=== PATIENT | female | born 1935 | race Caucasian/White ===

== ENCOUNTER → 2016-12-08 | Outpatient (CLI) | payer MEDICARE, BC ==
--- NOTE | 2016-12-09 09:30 | MM ---
Reason for exam: screening (asymptomatic). Last mammogram was performed 1 year and 5 months ago. History: Patient is postmenopausal. Benign excisional biopsy of the left breast, 1989. Took estrogen for 10 years beginning at age 48. Physical Findings: A clinical breast exam by your physician is recommended on an annual basis and results should be correlated with mammographic findings. MG 3D Screening Mammo W/Cad Bilateral CC and MLO view(s) were taken. Prior study comparison: June 26, 2015, bilateral MG screening mammo w CAD. June 07, 2014, bilateral MG screening mammo w CAD. The breast tissue is almost entirely fat. There is chronic nodularity in the left breast. No significant changes when compared with prior studies. ASSESSMENT: Benign, BI-RAD 2 RECOMMENDATION: Routine screening mammogram of both breasts in 1 year.
== END | disposition home or self-care (01) ==
LOC: RADMAMWWP 07:08
PROVIDERS: ATTEND Family Medicine
DX: Z12.31 Encounter for screening mammogram for malignant neoplasm of breast (principal)
CPT/HCPCS: 77063; G0202

== ENCOUNTER → 2018-01-24 | Outpatient (CLI) | payer MEDICARE, BC ==
--- NOTE | 2018-01-24 23:14 | BD ---
EXAMINATION TYPE: Axial Bone Density DATE OF EXAM: 01/24/2018 COMPARISON: NONE CLINICAL HISTORY: 82-year-old female postmenopausal screening without HRT Height: 5 FT 3 1/2 IN Weight: 208 FRAX RISK QUESTIONS: Secondary Osteoporosis: 3. Menopause before 45: YES RISK FACTORS HISTORY OF: Active: MODERATELY Postmenopausal woman: AGE 48 Take estrogen and/or progesterone medications: TOOK PREMARIN How lon YEARS NO LONGER TAKES MEDICATIONS: Additional Medications: METOPROLOL, PRAVASTATIN, OSTEO BIFLEX, CENTRUM SILVER, COQ10, ASPIRIN Additional History: EXAM MEASUREMENTS: Bone mineral densitometry was performed using the [employer] System. Bone mineral density as measured about the Lumbar spine is: ----- L1-L4(G/cm2): 1.297 T Score Values are as follows: ----- L2: 0.5 ----- L3: 1.3 ----- L4: 1.7 ----- L1-L4: 1.0 Bone mineral density has: INCREASED 1.1 % since study of: 2004 Bone mineral density about the R hip (g/cm2): 1.028 Bone mineral density about the L hip (g/cm2): 0.814 T Score values are as follows: -----R Neck: -0.1 -----L Neck: -1.6 -----R Total: 0.5 -----L Total: 0.2 Bone mineral density has: DECREASED -4.1 % since study of: 2004 IMPRESSION: Osteopenia (T Score between -2.5 and -1). There is slightly increased risk of fracture and the patient may be considered for treatment. Re-Screen 2-5 years. NOTE: T-SCORE=SD OF THE YOUNG ADULT MEAN.
--- NOTE | 2018-01-26 08:44 | MM ---
Reason for exam: screening (asymptomatic). Last mammogram was performed 1 year and 2 months ago. History: Patient is postmenopausal. Benign excisional biopsy of the left breast, 1989. Took estrogen for 10 years beginning at age 48. Physical Findings: A clinical breast exam by your physician is recommended on an annual basis and results should be correlated with mammographic findings. MG 3D Screening Mammo W/Cad Bilateral CC and MLO view(s) were taken. Prior study comparison: December 08, 2016, bilateral MG 3d screening mammo w/cad. June 26, 2015, bilateral MG screening mammo w CAD. There are scattered fibroglandular densities. There is chronic nodularity in the left breast. No significant changes when compared with prior studies. ASSESSMENT: Negative, BI-RAD 1 RECOMMENDATION: Routine screening mammogram of both breasts in 1 year.
== END | disposition home or self-care (01) ==
LOC: RADMAMWWP 07:45
PROVIDERS: ATTEND Family Medicine
DX: Z12.31 Encounter for screening mammogram for malignant neoplasm of breast (principal); M85.80 Other specified disorders of bone density and structure, unspecified site; Z78.0 Asymptomatic menopausal state
CPT/HCPCS: 77063; 77067; 77080

== ENCOUNTER → 2019-02-05 | Outpatient (CLI) | payer MEDICARE, BC ==
--- NOTE | 2019-02-07 09:08 | MM ---
Reason for exam: screening (asymptomatic). Last mammogram was performed 1 year ago. History: Patient is postmenopausal. Benign excisional biopsy of the left breast, 1989. Took estrogen for 10 years beginning at age 48. Physical Findings: A clinical breast exam by your physician is recommended on an annual basis and results should be correlated with mammographic findings. MG 3D Screening Mammo W/Cad Bilateral CC and MLO view(s) were taken. Prior study comparison: January 24, 2018, bilateral MG 3d screening mammo w/cad. December 08, 2016, bilateral MG 3d screening mammo w/cad. There are scattered fibroglandular densities. There is chronic nodularity in the left breast. Mole medially on the right. No significant changes when compared with prior studies. ASSESSMENT: Negative, BI-RAD 1 RECOMMENDATION: Routine screening mammogram of both breasts in 1 year.
== END | disposition home or self-care (01) ==
LOC: RADMAMWWP 07:56
PROVIDERS: ATTEND Family Medicine
DX: Z12.31 Encounter for screening mammogram for malignant neoplasm of breast (principal)
CPT/HCPCS: 77063; 77067

== ENCOUNTER → 2020-04-28 | Outpatient (CLI) | payer MEDICARE, BC ==
--- NOTE | 2020-04-29 13:28 | MM ---
Reason for exam: screening (asymptomatic). Last mammogram was performed 1 year and 3 months ago. History: Patient is postmenopausal. Benign excisional biopsy of the left breast, 1989. Took estrogen for 10 years beginning at age 48. Physical Findings: A clinical breast exam by your physician is recommended on an annual basis and results should be correlated with mammographic findings. MG 3D Screening Mammo W/Cad Bilateral CC and MLO view(s) were taken. Prior study comparison: February 05, 2019, bilateral MG 3d screening mammo w/cad. January 24, 2018, bilateral MG 3d screening mammo w/cad. There are scattered fibroglandular densities. There is chronic nodularity in the left breast. No significant changes when compared with prior studies. ASSESSMENT: Negative, BI-RAD 1 RECOMMENDATION: Routine screening mammogram of both breasts in 1 year.
== END | disposition home or self-care (01) ==
LOC: RADMAMWWP 13:27
PROVIDERS: ATTEND Family Medicine
DX: Z12.31 Encounter for screening mammogram for malignant neoplasm of breast (principal)
CPT/HCPCS: 77063; 77067

== ENCOUNTER 2021-05-18 19:58 | Observation (INO) | payer MEDICARE, BC ==
[2021-05-18 23:04] VITALS: TEMP 97.6
[2021-05-19 03:24] LABS: Appearance,Urine Clear (Clear); Bilirubin,Urine Negative (Negative); Blood,Urine Negative (Negative); Color,Urine Yellow; Glucose,Urine (UA) Negative (Negative); Ketones,Urine Negative (Negative); Leukocyte Esterase,Urine Negative (Negative); Nitrite,Urine Negative (Negative); PH, Urine 5.5 (5.0-8.0); Protein,Urine Negative (Negative); Specific Gravity,Urine 1.012 (1.001-1.035); Urobilinogen,Urine <2.0 mg/dL (<2.0)
[2021-05-19 03:39] LABS: Albumin 3.6 g/dL (3.5-5.0); Calcium 9.3 mg/dL (8.4-10.2); Potassium 4.1 mmol/L (3.5-5.1); Total Bilirubin 0.3 mg/dL (0.2-1.3); Total Protein 6.5 g/dL (6.3-8.2)
[2021-05-19 03:41] LABS: INR 0.9 (<1.2); Partial Thromboplastin Time 22.9 sec (22.0-30.0)
[2021-05-19 03:48] LABS: Basophils # (A) 0.1 k/uL (0-0.2); Basophils % (A) 1 %; Eosinophils # (A) 0.2 k/uL (0-0.7); Eosinophils % (A) 1 %; HCT 41.1 % (34.0-46.0); HGB 13.9 gm/dL (11.4-16.0); Lymphocytes # (A) 6.4 k/uL (1.0-4.8); Lymphocytes % (A) 57 %; MCH 31.7 pg (25.0-35.0); MCHC 33.7 g/dL (31.0-37.0); MCV 93.8 fL (80.0-100.0); Mean Platelet Volume 8.1; Monocytes # (A) 0.5 k/uL (0-1.0); Monocytes % (A) 5 %; Neutrophils # (A) 3.7 k/uL (1.3-7.7); Neutrophils % (A) 33 %; Platelet Count 183 k/uL (150-450); RBC 4.38 m/uL (3.80-5.40); RDW 12.7 % (11.5-15.5); WBC 11.2 k/uL (3.8-10.6)
--- NOTE | 2021-05-19 04:08 | XR ---
EXAMINATION TYPE: XR chest 2V DATE OF EXAM: 05/19/2021 COMPARISON: NONE HISTORY: Altered mental status TECHNIQUE: 2 views FINDINGS: Heart is enlarged. There is no heart failure. Costophrenic angles are clear. Lungs are maximiliano r of infiltrate. Bony thorax is intact. IMPRESSION: No active cardiopulmonary disease. Cardiomegaly.
--- NOTE | 2021-05-19 04:10 | CT ---
EXAMINATION TYPE: CT brain wo con DATE OF EXAM: 05/19/2021 COMPARISON: None HISTORY: loss of balance CT DLP: 1487 mGycm Automated exposure control for dose reduction was used. There is cerebral cortical atrophy. There is no mass effect nor midline shift. There is no sign of in tracranial hemorrhage. Calvarium is intact. Skull base is intact. There is mucus retention cyst poste rior left maxillary sinus. IMPRESSION: Cerebral mild atrophy. No acute intracranial abnormality.
--- NOTE | 2021-05-19 04:30 | ED ---
General Adult HPI - General Chief complaint: Neuro Symptoms/Deficit Stated complaint: Loss of balance Time Seen by Provider: 05/19/21 02:26 Source: patient, family Mode of arrival: ambulatory - History of Present Illness Initial comments: 85-year-old female patient presents to the emergency department today for evaluation of inability to "walk straight" states symptoms started around 5pm this evening. States whenever she went to walk she would nearly fall. States denies any dizziness or room spinning. Denies any headache, blurred vision, or double vision. Denies any recent head injury. States her blood pressure has been higher than usual this evening. Denies any numbness, tingling, weakness to her extremities. Denies speech difficulty. Denies any chest pain or shortness of breath. Denies history of similar symptoms. She does take metoprolol for blood pressure. - Related Data Home Medications Medication Instructions Recorded Confirmed Aspirin 81 mg PO DAILY 12/06/13 12/07/13 Esomeprazole Magnesium [NexIUM] 40 mg PO DAILY PRN 12/06/13 12/07/13 Ezetimibe/Simvastatin [Vytorin 1 each PO HS 12/06/13 12/07/13 10-20 mg Tablet] Quinapril HCl 40 mg PO DAILY 12/06/13 12/07/13 Terbinafine [LamISIL] 250 mg PO DAILY 12/06/13 12/07/13 Previous Rx's Medication Instructions Recorded diphenhydrAMINE [Benadryl] 25 mg PO BID PRN #10 capsule 03/07/14 predniSONE 50 mg PO DAILY #3 tab 03/07/14 Allergies Allergy/AdvReac Type Severity Reaction Status Date / Time No Known Allergies Allergy Verified 05/18/21 22:58 Review of Systems ROS Statement: Those systems with pertinent positive or pertinent negative responses have been documented in the HPI. ROS Other: All systems not noted in ROS Statement are negative. Past Medical History Past Medical History: Hypertension History of Any Multi-Drug Resistant Organisms: None Reported Past Surgical History: Cholecystectomy, Hysterectomy, Orthopedic Surgery, Tonsillectomy Past Psychological History: No Psychological Hx Reported Smoking Status: Never smoker Past Alcohol Use History: None Reported Past Drug Use History: None Reported General Exam General appearance: alert, in no apparent distress, other (This is a well- developed, well-nourished adult female patient in no acute distress.) Eye exam: Present: normal appearance, PERRL, EOMI, nystagmus (Left horizontal gaze). Absent: scleral icterus, conjunctival injection, periorbital swelling ENT exam: Present: normal exam, normal oropharynx, mucous membranes moist Respiratory exam: Present: normal lung sounds bilaterally. Absent: respiratory distress, wheezes, rales, rhonchi, stridor Cardiovascular Exam: Present: normal rhythm, bradycardia, normal heart sounds. Absent: systolic murmur, diastolic murmur, rubs, gallop, clicks GI/Abdominal exam: Present: soft, normal bowel sounds. Absent: distended, tenderness, guarding, rebound, rigid Neurological exam: Present: alert, oriented X3, CN II-XII intact Expanded Speech: Present: fluid speech Cranial nerves: EOM's Intact: Normal, Nystagmus: Abnormal Left, Facial Sensation: Normal Cerebellar function: Finger to Nose: Normal, Romberg: Abnormal Right, Abnormal Left Upper motor neuron: Pronator Drift: Normal Motor strength exam: RUE: 5, LUE: 5, RLE: 5, LLE: 5 Psychiatric exam: Present: normal affect, normal mood Skin exam: Present: warm, dry, intact, normal color. Absent: rash Course Vital Signs 05/18/21 05/19/21 22:59 02:27 Temperature 97.6 F Pulse Rate 59 L 62 Respiratory 20 16 Rate Blood Pressure 192/80 174/80 O2 Sat by Pulse 98 96 Oximetry EKG Findings - EKG Comments: EKG Findings:: EKG obtained at 03 15 shows sinus bradycardia with a ventricular rate of 53, MA interval 142, QR restorationism 80, QT 486, QTc 456. No evidence of ST elevation or depression. Medical Decision Making - Medical Decision Making 85-year-old female patient presented to the emergency department today for acute onset of gait disturbance around 5 PM in the afternoon. We'll examination did reveal gait ataxia. She was otherwise neurologically intact with no focal deficits. Alert and oriented. Labs reviewed and are unremarkable. CT brain without contrast was negative. CT angiography of the head and neck was negative. Chest x-ray negative. She'll be admitted to the hospital for further evaluation by neurology. Did discuss with my attending Dr. Irwin. - Lab Data Result diagrams: 05/19/21 03:18 05/19/21 03:18 Lab Results 05/19/21 05/19/21 05/19/21 Range/Units 02:19 03:18 03:18 WBC 11.2 H (3.8-10.6) k/uL RBC 4.38 (3.80-5.40) m/uL Hgb 13.9 (11.4-16.0) gm/dL Hct 41.1 (34.0-46.0) % MCV 93.8 (80.0-100.0) fL MCH 31.7 (25.0-35.0) pg MCHC 33.7 (31.0-37.0) g/dL RDW 12.7 (11.5-15.5) % Plt Count 183 (150-450) k/uL MPV 8.1 PT 10.0 (9.0-12.0) sec INR 0.9 (<1.2) APTT 22.9 (22.0-30.0) sec Sodium (137-145) mmol/L Potassium (3.5-5.1) mmol/L Chloride (98-107) mmol/L Carbon Dioxide (22-30) mmol/L Anion Gap mmol/L BUN (7-17) mg/dL Creatinine (0.52-1.04) mg/dL Est GFR (CKD-EPI)AfAm (>60 ml/min/1.73 sqM) Est GFR (CKD-EPI)NonAf (>60 ml/min/1.73 sqM) Glucose (74-99) mg/dL Calcium (8.4-10.2) mg/dL Total Bilirubin (0.2-1.3) mg/dL AST (14-36) U/L ALT (4-34) U/L Alkaline Phosphatase (38-126) U/L Troponin I (0.000-0.034) ng/mL Total Protein (6.3-8.2) g/dL Albumin (3.5-5.0) g/dL Urine Color Yellow Urine Appearance Clear (Clear) Urine pH 5.5 (5.0-8.0) Ur Specific Clutier 1.012 (1.001-1.035) Urine Protein Negative (Negative) Urine Glucose (UA) Negative (Negative) Urine Ketones Negative (Negative) Urine Blood Negative (Negative) Urine Nitrite Negative (Negative) Urine Bilirubin Negative (Negative) Urine Urobilinogen <2.0 (<2.0) mg/dL Ur Leukocyte Esterase Negative (Negative) 05/19/21 05/19/21 Range/Units 03:18 03:18 WBC (3.8-10.6) k/uL RBC (3.80-5.40) m/uL Hgb (11.4-16.0) gm/dL Hct (34.0-46.0) % MCV (80.0-100.0) fL MCH (25.0-35.0) pg MCHC (31.0-37.0) g/dL RDW (11.5-15.5) % Plt Count (150-450) k/uL MPV PT (9.0-12.0) sec INR (<1.2) APTT (22.0-30.0) sec Sodium 136 L (137-145) mmol/L Potassium 4.1 (3.5-5.1) mmol/L Chloride 105 (98-107) mmol/L Carbon Dioxide 27 (22-30) mmol/L Anion Gap 4 mmol/L BUN 16 (7-17) mg/dL Creatinine 0.75 (0.52-1.04) mg/dL Est GFR (CKD-EPI)AfAm 85 (>60 ml/min/1.73 sqM) Est GFR (CKD-EPI)NonAf 74 (>60 ml/min/1.73 sqM) Glucose 140 H (74-99) mg/dL Calcium 9.3 (8.4-10.2) mg/dL Total Bilirubin 0.3 (0.2-1.3) mg/dL AST 35 (14-36) U/L ALT 24 (4-34) U/L Alkaline Phosphatase 70 (38-126) U/L Troponin I <0.012 (0.000-0.034) ng/mL Total Protein 6.5 (6.3-8.2) g/dL Albumin 3.6 (3.5-5.0) g/dL Urine Color Urine Appearance (Clear) Urine pH (5.0-8.0) Ur Specific Clutier (1.001-1.035) Urine Protein (Negative) Urine Glucose (UA) (Negative) Urine Ketones (Negative) Urine Blood (Negative) Urine Nitrite (Negative) Urine Bilirubin (Negative) Urine Urobilinogen (<2.0) mg/dL Ur Leukocyte Esterase (Negative) - Radiology Data Radiology results: report reviewed, image reviewed CT angiography of the head and neck are obtained. Report was reviewed in its e ntirety. Impression by Dr. Arana shows negative CT angiogram of the neck. Negative CT angiogram of the brain. CT brain without contrast is obtained. Report was reviewed in its entirety. Impression by Dr. Arana shows cerebral mild atrophy. No acute intracranial abnormality. Two-view x-ray of the chest is obtained. Report was reviewed in its entirety. Impression by Dr. Arana shows no active cardiopulmonary disease. Cardiomegaly. Disposition Clinical Impression: Gait disturbance, Disequilibrium Disposition: ADMITTED IP TO THIS [facility] Condition: Serious Referrals: Naa Ray MD [Primary Care Provider] - 1-2 days Decision to Admit Reason: Admit from EC Decision Date: 05/19/21 Decision Time: 05:14
--- NOTE | 2021-05-19 04:46 | CT ---
EXAMINATION TYPE: CT angio head neck DATE OF EXAM: 05/19/2021 COMPARISON: None HISTORY: ataxia CT DLP: 1487 mGycm Automated exposure control for dose reduction was used. CONTRAST: Performed with IV Contrast, patient injected with 65 mL of Isovue 370. There is normal branching pattern of the great vessels on the aortic arch. There is bilateral arteria l flow in the subclavian arteries. There is arterial flow in the common internal and external carotid arteries bilaterally. There is wide patency of the carotid artery bifurcations. There is minimal mauricio que formation and less than 5% stenosis. There is arterial flow in both vertebral arteries. Left vert ebral artery is larger than the right. There is arterial flow in the vertebrobasilar artery system. T here is no evidence of carotid or vertebral artery aneurysm or dissection. There is arterial flow in the anterior middle and posterior cerebral arteries. I see no evidence of h emodynamic stenosis. There is no evidence of intracranial aneurysm or neovascularity. There is normal enhancement of the venous sinuses. There is no mass effect. IMPRESSION: Negative CT angiogram of the neck. Negative CT angiogram of the brain.
[2021-05-19] MEDS ORDERED: NALOXONE 0.4 MG/ML 1 ML VIAL IV PRN (05:14)
[2021-05-19 06:31] LABS: Anisocytosis (M) Present
--- NOTE | 2021-05-19 13:12 | P.HPIM ---
History of Present Illness 85-year-old female came in because of inability to walk and gait instability which completely resolved when I evaluated the patient patient denied any vision problems patient denied any focal weakness except for bilateral lower extremity gait instability. Patient denied any headache patient denied any other symptoms. Patient's symptoms started yesterday evening. Patient had a CT angios the head and neck as well as CT of the head all of which are negative for any acute stroke. Neurology was consulted patient was subsequently admitted. Patient doesn't take any aspirin at home. REVIEW OF SYSTEMS: CONSTITUTIONAL: No fever, no malaise, no fatigue. HEENT: No recent visual problems or hearing problems. Denied any sore throat. CARDIOVASCULAR: No chest pain, orthopnea, PND, no palpitations, no syncope. PULMONARY: No shortness of breath, no cough, no hemoptysis. GASTROINTESTINAL: No diarrhea, no nausea, no vomiting, no abdominal pain. NEUROLOGICAL: No headaches, no weakness, no numbness. HEMATOLOGICAL: As mentioned in HPI GENITOURINARY: Denies any burning micturition, frequency, or urgency. MUSCULOSKELETAL/RHEUMATOLOGICAL: Denies any joint pain, swelling, or any muscle pain. ENDOCRINE: Denies any polyuria or polydipsia. The rest of the 14-point review of systems is negative. PHYSICAL EXAMINATION: GENERAL: The patient is alert and oriented x3, not in any acute distress. Well developed, well nourished. HEENT: Pupils are round and equally reacting to light. EOMI. No scleral icterus. No conjunctival pallor. Normocephalic, atraumatic. No pharyngeal erythema. No thyromegaly. CARDIOVASCULAR: S1 and S2 present. No murmurs, rubs, or gallops. PULMONARY: Chest is clear to auscultation, no wheezing or crackles. ABDOMEN: Soft, nontender, nondistended, normoactive bowel sounds. No palpable organomegaly. MUSCULOSKELETAL: No joint swelling or deformity. EXTREMITIES: No cyanosis, clubbing, or pedal edema. NEUROLOGICAL: Gross neurological examination did not reveal any focal deficits. SKIN: No rashes. Assessment and plan Plan transcend episode of unstable gait: Etiology is not clear may have had a transient ischemic attack. Neurology will evaluate the patient. Depending on neurology's evaluation will do further workup if cleared by neurology patient will be discharged on antiplatelet therapy and possibly a statin. symptoms completely resolved at this time -Gastroesophageal reflux disease -Hypertension Past Medical History Past Medical History: Hypertension History of Any Multi-Drug Resistant Organisms: None Reported Past Surgical History: Cholecystectomy, Hysterectomy, Orthopedic Surgery, Tonsillectomy Past Psychological History: No Psychological Hx Reported Smoking Status: Never smoker Past Alcohol Use History: None Reported Past Drug Use History: None Reported Medications and Allergies Home Medications Medication Instructions Recorded Confirmed Type Biotin 5 mg PO PC-LUNCH 05/19/21 05/19/21 History Deepak/D3/Mag11/Zinc/Invasive Physician/Raymond/Bor 1 tab PO DAILY 05/19/21 05/19/21 History [Caltrate 600+D Plus Tablet] Fish Oil/Dha/Epa [Fish Oil 1,200 1 cap PO HS 05/19/21 05/19/21 History mg Fish Oil] Flaxseed Oil 1,000 mg PO HS 05/19/21 05/19/21 History Glucosamine/Chondr Snyder A Sod [Osteo 1 tab PO DAILY 05/19/21 05/19/21 History Bi-Flex Caplet] Metoprolol Succinate (ER) [Toprol 100 mg PO DAILY 05/19/21 05/19/21 History Xl] Multivit-Min/FA/Lycopen/Lutein 1 tab PO DAILY 05/19/21 05/19/21 History [Centrum Silver Tablet] Red Yeast Rice 600 mg PO HS 05/19/21 05/19/21 History Vitamin B Complex 1 cap PO PC-LUNCH 05/19/21 05/19/21 History Zinc 50 mg PO PC-LUNCH 05/19/21 05/19/21 History Allergies Allergy/AdvReac Type Severity Reaction Status Date / Time No Known Allergies Allergy Verified 05/19/21 07:55 Physical Exam Vitals: Vital Signs Temp Pulse Resp BP Pulse Ox 05/19/21 09:05 65 18 155/82 95 05/19/21 05:26 70 16 150/70 96 05/19/21 02:27 62 16 174/80 96 05/18/21 22:59 97.6 F 59 L 20 192/80 98 Intake and Output 05/18/21 05/19/21 05/19/21 22:59 06:59 14:59 Other: Weight 87.543 kg Results CBC & Chem 7: 05/19/21 03:18 05/19/21 03:18 Labs: Abnormal Lab Results - Last 24 Hours (Table) 05/19/21 05/19/21 Range/Units 03:18 03:18 WBC 11.2 H (3.8-10.6) k/uL Lymphocytes # 6.4 H (1.0-4.8) k/uL Sodium 136 L (137-145) mmol/L Glucose 140 H (74-99) mg/dL
[2021-05-19] MEDS ORDERED: ASPIRIN 81 MG PO STA (16:21)
--- NOTE | 2021-05-19 16:35 | P.DS ---
Providers Date of admission: 05/19/21 04:24 Attending physician: Julio Chávez MD Consults: 05/19/21 05:15 Consult Physician Routine Consulting Provider: Magno Dailey Consult Reason/Comments: Gait disturbance, disequilibrium Do you want consulting provider notified?: Yes Primary care physician: Naa Ray [facility] Course: Patient is admitted for possible TIA. Patient had a CT of the head and the CT angios both of which are negative. Patient does have history of hypertension only takes metoprolol at home. Patient did pressure was significantly high today because of the TIA patient may abdomen not need additional medications for hypertension patient will not be started on these medications because of her recent TIA. I do not have any lipid panel available because of the high suspicion of TIA patient will be discharged on 40 mg of atorvastatin and aspirin 81 mg. Echo is still pending was echo is done here in the hospital patient will be discharged and will follow-up on the echo tomorrow and patient will be called if there is any significant abnormality and the echo. Patient has mild leukocytosis which is reactive in nature patient will follow with PCP and neurology as an outpatient. For rest of the hospitalization course please refer to my H&P from today Patient Condition at Discharge: Serious Plan - Discharge Summary New Discharge Prescriptions: New Aspirin 81 mg PO DAILY #30 tab Atorvastatin [Lipitor] 40 mg PO HS #30 tab Continue Fish Oil/Dha/Epa [Fish Oil 1,200 mg Fish Oil] 1 cap PO HS Multivit-Min/FA/Lycopen/Lutein [Centrum Silver Tablet] 1 tab PO DAILY Metoprolol Succinate (ER) [Toprol XL] 100 mg PO DAILY Glucosamine/Chondr Snyder A Sod [Osteo Bi-Flex Caplet] 1 tab PO DAILY Zinc 50 mg PO PC-LUNCH Vitamin B Complex 1 cap PO PC-LUNCH Red Yeast Rice 600 mg PO HS Flaxseed Oil 1,000 mg PO HS Deepak/D3/Mag11/Zinc/[employer]/Raymond/Bor [Caltrate 600+D Plus Tablet] 1 tab PO DAILY Biotin 5 mg PO PC-LUNCH Discharge Medication List Aspirin 81 mg PO DAILY #30 tab 05/19/21 [Rx] Atorvastatin [Lipitor] 40 mg PO HS #30 tab 05/19/21 [Rx] Biotin 5 mg PO PC-LUNCH 05/19/21 [History] Deepak/D3/Mag11/Zinc/[employer]/Raymond/Bor [Caltrate 600+D Plus Tablet] 1 tab PO DAILY 05/19/21 [History] Fish Oil/Dha/Epa [Fish Oil 1,200 mg Fish Oil] 1 cap PO HS 05/19/21 [History] Flaxseed Oil 1,000 mg PO HS 05/19/21 [History] Glucosamine/Chondr Snyder A Sod [Osteo Bi-Flex Caplet] 1 tab PO DAILY 05/19/21 [History] Metoprolol Succinate (ER) [Toprol XL] 100 mg PO DAILY 05/19/21 [History] Multivit-Min/FA/Lycopen/Lutein [Centrum Silver Tablet] 1 tab PO DAILY 05/19/21 [History] Red Yeast Rice 600 mg PO HS 05/19/21 [History] Vitamin B Complex 1 cap PO PC-LUNCH 05/19/21 [History] Zinc 50 mg PO PC-LUNCH 05/19/21 [History] Follow up Appointment(s)/Referral(s): Naa Ray MD [Primary Care Provider] - 3 Days Discharge Disposition: HOME SELF-CARE
[2021-05-19] MEDS ORDERED: ATORVASTATIN 40 MG TAB PO SCH (21:00)
--- NOTE | 2021-05-19 22:51 | P.CNNES ---
History of Present Illness Consult date: 05/19/21 Requesting physician: Bettina Olsen Reason for Consult: Gait disturbance, disequilibrium History of Present Illness: Patient is a 85-year-old female came to the hospital yesterday at 8 PM for evaluation of difficulty walking straight and the symptoms started 5 PM, 3 hours prior to arrival. Patient mentioned that whenever she wants to walk, will nearly fall. Denies any dizziness or spinning. Patient states that prior to 5 PM yesterday, she was perfectly fine, walking normally. She does not use any device or any cane. Earlier in the morning she went for shopping as well. At around 5 PM, she got up to get ready her dinner, she felt a little dizzy. It wasn't too bad. She sat down. The next time she got up, felt very cheli, and the balance kept on getting worse. She denied any spinning, any vertigo, nausea vomiting, no tinnitus, no hearing loss or any pain or pressure sensation in the ears. No focal numbness tingling weakness, slurred speech facial droop, visual disturbance any headache, neck or back pain or any falls. She felt that she could fall over to any side not any particular one. Vital signs on arrival blood pressure 192/80, pulse rate 59, temperature 97.6. Her blood pressure has improved to 155/82. Blood test shows WBC 11.2 hemoglobin 13.9, platelets 183. PT/PTT normal, sodium 136 potassium 4.1, normal renal function, normal hepatic panel, negative troponin. UA negative, puga virus PCR negative. Patient's last hemoglobin A1c 6.8 on 02/05/2021. Her total cholesterol 233, LDL 159, HDL [address] head showed cerebral atrophy, mild degree, no acute process. Chest x-ray showed no active cardiopulmonary disease, cardiomegaly. EKG with sinus bradycardia. CTA of head and neck are reported as normal. Patient states her symptoms were worst at the time she came to the hospital at 8 PM. She couldn't walk. Earlier this morning at 7:30 AM, she felt the symptoms started to subside. Now almost all symptoms have gone and she feels back to baseline. She is able to walk without any concern of fall. Again, no focal symptoms. Denies any previous history of strokes or TIA. Patient's home medications include fish oil, multivitamin, metoprolol 100 mg daily, zinc, vitamin D, biotin and multivitamins. Patient does not take any antiplatelet medication at home. Patient apparently has "borderline" diabetes for the last 3-4 years, does not take any medication for diabetes. Her hemoglobin A1c as of 02/07/2020 was 7.2. Patient has hypertension and hyperlipidemia. Review of Systems As mentioned above in detail. All other review of systems reviewed and unremarkable. Denies any chest pain, shortness of breath wheezing or cough. No nausea vomiting diarrhea. No fever or chills. Past Medical History Past Medical History: Hypertension History of Any Multi-Drug Resistant Organisms: None Reported Past Surgical History: Cholecystectomy, Hysterectomy, Orthopedic Surgery, Tonsillectomy Past Psychological History: No Psychological Hx Reported Smoking Status: Never smoker Past Alcohol Use History: None Reported Past Drug Use History: None Reported Medications and Allergies Home Medications Medication Instructions Recorded Confirmed Type Aspirin 81 mg PO DAILY #30 tab 05/19/21 Rx Atorvastatin [Lipitor] 40 mg PO HS #30 tab 05/19/21 Rx Biotin 5 mg PO PC-LUNCH 05/19/21 05/19/21 History Deepak/D3/Mag11/Zinc/Product Managent Intern/Raymond/Bor 1 tab PO DAILY 05/19/21 05/19/21 History [Caltrate 600+D Plus Tablet] Fish Oil/Dha/Epa [Fish Oil 1,200 1 cap PO HS 05/19/21 05/19/21 History mg Fish Oil] Flaxseed Oil 1,000 mg PO HS 05/19/21 05/19/21 History Glucosamine/Chondr Snyder A Sod [Osteo 1 tab PO DAILY 05/19/21 05/19/21 History Bi-Flex Caplet] Metoprolol Succinate (ER) [Toprol 100 mg PO DAILY 05/19/21 05/19/21 History XL] Multivit-Min/FA/Lycopen/Lutein 1 tab PO DAILY 05/19/21 05/19/21 History [Centrum Silver Tablet] Red Yeast Rice 600 mg PO HS 05/19/21 05/19/21 History Vitamin B Complex 1 cap PO PC-LUNCH 05/19/21 05/19/21 History Zinc 50 mg PO PC-LUNCH 05/19/21 05/19/21 History Allergies Allergy/AdvReac Type Severity Reaction Status Date / Time No Known Allergies Allergy Verified 05/19/21 07:55 Physical Examination - Vital Signs Vital Signs: Vital Signs Temp Pulse Resp BP Pulse Ox 05/19/21 09:05 65 18 155/82 95 05/19/21 05:26 70 16 150/70 96 05/19/21 02:27 62 16 174/80 96 05/18/21 22:59 97.6 F 59 L 20 192/80 98 Intake and Output 05/18/21 05/19/21 05/19/21 22:59 06:59 14:59 Other: Weight 87.543 kg Patient is an elderly female, in no acute distress. Patient is alert awake oriented to time place and person. Speech and language functions are normal. Attention, concentration and fund of knowledge is adequate. On cranial examination, pupils are round and reacting to light, visual rojas are full on confrontation, extraocular muscles are intact with no nystagmus. Face is symmetric, tongue protrudes to the midline. Palatal elevation and sensation normal, hearing and shoulder shrug normal, facial sensation normal. Shoulder shrug normal. On muscle strength testing, there is no pronator drift and the strength is normal in arms and legs distally and proximally. Deep tendon reflexes are 1 in the upper limbs, trace to 1 in the lower limbs and plantars downgoing bilaterally. Sensory to touch is equal with no neglect. Temperature sensation patient was feeling slightly decreased cold sensation in the right arm and the right side of the face, but was equal in the legs. Cerebellar function showed no ataxia for [id number] testing. No dysdiadochokinesia. Tone and bulk of muscles normal. No ataxia for [id number] testing. Gait appears to walk with slightly wide base. Otherwise did not feel fall risk. On general examination, there is no carotid bruit or murmur, S1-S2 audible. Abdomen is soft nontender. Chest is clear. Peripheral pulses are present. No edema. Results - Laboratory Findings CBC and BMP: 05/19/21 03:18 05/19/21 03:18 Abnormal Lab Findings: Abnormal Labs 05/19/21 05/19/21 03:18 03:18 WBC 11.2 H Lymphocytes # 6.4 H Sodium 136 L Glucose 140 H Assessment and Plan Assessment: * Possible TIA manifesting with transient gait imbalance, that resolved in around 14 hours. Patient did not have any other lateralizing symptoms, although examination revealed slightly decreased temperature sensation involving the right side of the face and arm. * Hypertension * Diabetes * Hyperlipidemia Plan: * Patient will be started on aspirin 325 mg daily. Suggest patient continue full aspirin for 6 weeks and then may decrease to 81 mg daily. * Patient's lipid panel from 02/05/2021 shows cholesterol 233, LDL 159.8, HDL 44 and triglycerides 146. Patient needs to be started on statins. Lipitor 40 mg at bedtime will be started. Patient states that she has side effects from Lipitor in the past. Also has milder side effects from simvastatin. I would suggest discharging on Crestor 20 mg, if okay with primary physician. * Telemetry monitoring * Hemoglobin A1c 6.8 on 02/05/2021. * CTA of head and neck shows no significant stenosis. * 2-D echo rule out embolic source. * Optimize control of blood pressure. * Discussed with Dr Oneal. Thank you for the consult.
[2021-05-20 08:54] VITALS: BP 124/76; PULSE 65; RESP 18
[2021-05-20] MEDS ORDERED: ASPIRIN 81 MG PO SCH (09:00)
[2021-05-20] MEDS ORDERED: ASPIRIN 325 MG TAB PO SCH (09:00)
--- NOTE | 2021-05-20 11:00 | ECHOF ---
Referral Reason:TIA MEASUREMENTS -------- HEIGHT: 162.6 cm WEIGHT: 87.5 kg BP: RVIDd: 2.8 cm (< 3.3) IVSd: 1.0 cm (0.6 - 1.1) LVIDd: 4.6 cm (3.9 - 5.3) LVPWd: 1.2 cm (0.6 - 1.1) IVSs: 1.9 cm LVIDs: 2.0 cm LVPWs: 2.2 cm Ao Diam: 2.8 cm (2.0 - 3.7) AV Cusp: 1.7 cm (1.5 - 2.6) LA Diam: 2.7 cm (2.7 - 3.8) MV EXCURSION: 11.106 mm (> 18.000) MV EF SLOPE: 46 mm/s (70 - 150) EPSS: 1.3 cm MV E Victorino: 0.49 m/s MV DecT: 283 ms MV A Victorino: 1.02 m/s MV E/A Ratio: 0.48 RAP: 5.00 mmHg RVSP: 20.87 mmHg FINDINGS -------- This was a technically adequate study. The left ventricular size is normal. Left ventricular wall thickness is normal. Overall left vent ricular systolic function is normal with, an EF between 55 - 60 %. The right ventricle is normal in size. The left atrial size is normal. The right atrial size is normal. Aortic valve is trileaflet and is mildly thickened. The mitral valve is normal. The mitral valve leaflets are mildly thickened. Mild mitral regurgita tion is present. The tricuspid valve appears structurally normal. Mild tricuspid regurgitation present. Right vent ricular systolic pressure is normal at < 35 mmHg. There is no pulmonic regurgitation present. The aortic root size is normal. Normal inferior vena cava with normal inspiratory collapse consistent with estimated right atrial pre ssure of 5 mmHg. There is no pericardial effusion. CONCLUSIONS -------- 1. The left ventricular size is normal. 2. Left ventricular wall thickness is normal. 3. Overall left ventricular systolic function is normal with, an EF between 55 - 60 %. 4. Aortic valve is trileaflet and is mildly thickened. 5. The mitral valve leaflets are mildly thickened. 6. Mild mitral regurgitation is present. 7. Mild tricuspid regurgitation present. 8. There is no pericardial effusion. RN MENTAL HEALTH: Jaja Barnett RDCS
== END 2021-05-20 09:40 | disposition home or self-care (01) ==
LOC: EC 19:58 → 1SOBS 05-19 04:24 → 6NMEDSUR 05-19 14:07
PROVIDERS: ADMIT Internal Medicine; ATTEND Internal Medicine
DX: R26.2 Difficulty in walking, not elsewhere classified (principal); I10 Essential (primary) hypertension; D72.829 Elevated white blood cell count, unspecified; R00.1 Bradycardia, unspecified; E78.5 Hyperlipidemia, unspecified; K21.9 Gastro-esophageal reflux disease without esophagitis; E11.9 Type 2 diabetes mellitus without complications; R26.0 Ataxic gait; I08.1 Rheumatic disorders of both mitral and tricuspid valves; Z20.822 Contact with and (suspected) exposure to COVID-19; Z79.899 Other long term (current) drug therapy; Z79.82 Long term (current) use of aspirin; Z90.49 Acquired absence of other specified parts of digestive tract; Z90.710 Acquired absence of both cervix and uterus
CPT/HCPCS: 99285; 36415; 93005; 93306; 80053; 84484; 85025; 85610; 85730; 81003; 87635; 71046; 70496; 70450; 70498; G0378 ×3; Q9967

== ENCOUNTER → 2021-06-19 | Outpatient (CLI) | payer MEDICARE, BC ==
--- NOTE | 2021-06-22 10:05 | MM ---
Reason for exam: screening (asymptomatic). Last mammogram was performed 1 year and 2 months ago. History: Patient is postmenopausal. Benign excisional biopsy of the left breast, 1989. Took estrogen for 10 years beginning at age 48. Physical Findings: A clinical breast exam by your physician is recommended on an annual basis and results should be correlated with mammographic findings. MG 3D Screening Mammo W/Cad Bilateral CC and MLO view(s) were taken. Prior study comparison: April 28, 2020, bilateral MG 3d screening mammo w/cad. February 05, 2019, bilateral MG 3d screening mammo w/cad. There are scattered fibroglandular densities. There is chronic nodularity in the left breast. There is no discrete abnormality. ASSESSMENT: Benign, BI-RAD 2 RECOMMENDATION: Routine screening mammogram of both breasts in 1 year.
== END | disposition home or self-care (01) ==
LOC: RADMAMWWP 06:56
PROVIDERS: ATTEND Family Medicine
DX: Z12.31 Encounter for screening mammogram for malignant neoplasm of breast (principal)
CPT/HCPCS: 77063; 77067

== ENCOUNTER 2022-06-23 11:28 | Emergency (ER) | payer MEDICARE ==
[2022-06-23 12:07] VITALS: TEMP 98.7
--- NOTE | 2022-06-23 12:22 | ED ---
General Adult HPI - General Chief complaint: Neuro Symptoms/Deficit Stated complaint: hypertension, unsteady Time Seen by Provider: 06/23/22 11:58 Source: patient, family Mode of arrival: ambulatory Limitations: no limitations - History of Present Illness Initial comments: Dictation was produced using [employer] dictation software. please excuse any gr ammatical, word or spelling errors. Chief Complaint: 86-year-old female past medical history of TIAs presents to the ER for episode of left upper extremity paresthesia History of Present Illness: Patient is a 86-year-old female she has past medical history of CVA and TIAs. She has no residual deficits. She went to bed last night usual state of health. She woke up this morning at approximately 3 AM felt some paresthesias in her arm that lasted for several minutes. Patient states that at the bedside she is not having any symptoms currently. She was diagnosed with TIA several years ago. Patient denies any associated left facial weakness or paresthesias. Denied any weakness in her hand during the event paresthesias. Patient complains of a mild occipital headache. States that her headaches normally in the frontal portion. The ROS documented in this emergency department record has been reviewed and confirmed by me. Those systems with pertinent positive or negative responses have been documented in the HPI. All other systems are other negative and/or noncontributory. PHYSICAL EXAM: General Impression: Alert and oriented x3, not in acute distress HEENT: Normocephalic atraumatic, extra-ocular movements intact, pupils equal and reactive to light bilaterally, mucous membranes moist. Cardiovascular: Heart regular rate and rhythm Chest: Able to complete full sentences, no retractions, no tachypnea Abdomen: abdomen soft, non-tender, non-distended, no organomegaly Musculoskeletal: Pulses present and equal in all extremities, no peripheral edema Motor: no focal deficits noted Neurological: CN II-XII grossly intact, no focal motor or sensory deficits noted Skin: Intact with no visualized rashes Psych: Normal affect and mood ED course: 86-year-old female presents emergency department for several minutes of paresthesias to the left upper extremity. Patient had no other associated symptoms except for a very mild occipital headache. Patient's benign-appearing. Signs upon arrival are within acceptable limits. Neurologic exam is unremarkable. Nursing notes and chart review was performed EKG interpreted by me: Ventricular rate 66, sinus bradycardia,. 155, QRS 82, QTC 422. No W[place] prolongation, no QTC prolongation, no ST or T-wave changes noted. Overall, this EKG is unremarkable Laboratory evaluation obtained. CBC, coag panel, metabolic panel is unremarkable. Computed tomography scan of brain is negative for acute processes. Unlikely that patient's clinical presentation suggest TIA. Chart was reviewed showing the patient had stroke workup and 2020. His notes are reviewed. Her echocardiogram was normal. Neurology consultation no was reviewed from April 2021. Discharge summary from around that time was also reviewed showing that patient had no obvious findings of TIA or CVA. History of present illness suggests that patient lately experience some nonspecific neuropathic symptoms of the left upper extremity. Patient observed in emergency department for approximately one hour 50 minutes. Reevaluated at bedside at 1:20 PM found to be in stable medical condition. Disposition options were discussed with patient. She is agreeable for discharge and follow-up with primary care doctor. - Related Data Home Medications Medication Instructions Recorded Confirmed Biotin 5 mg PO DAILY@1200 05/19/21 06/23/22 Deepak/D3/Mag11/Zinc/Construction [employer] Leak [employer] Laborer/Raymond/Bor 1 tab PO DAILY 05/19/21 06/23/22 [Caltrate 600+D Plus Tablet] Fish Oil/Dha/Epa [Fish Oil 1,200 1 cap PO DAILY@1200 05/19/21 06/23/22 mg Fish Oil] Glucosamine/Chondr Snyder A Sod [Osteo 1 tab PO DAILY 05/19/21 06/23/22 Bi-Flex Caplet] Metoprolol Succinate (ER) [Toprol 100 mg PO DAILY 05/19/21 06/23/22 XL] Multivit-Min/FA/Lycopen/Lutein 1 tab PO DAILY 05/19/21 06/23/22 [Centrum Silver Tablet] Vitamin B Complex 1 cap PO DAILY@1200 05/19/21 06/23/22 Zinc 50 mg PO DAILY 05/19/21 06/23/22 Esomeprazole Magnesium [NexIUM 20 mg PO DAILY PRN 06/23/22 06/23/22 24Hr] Ubidecarenone [Co Q-10] 300 mg PO HS 06/23/22 06/23/22 Previous Rx's Medication Instructions Recorded Atorvastatin [Lipitor] 40 mg PO HS #30 tab 05/19/21 Allergies Allergy/AdvReac Type Severity Reaction Status Date / Time No Known Allergies Allergy Verified 06/23/22 13:04 Review of Systems ROS Statement: Those systems with pertinent positive or pertinent negative responses have been documented in the HPI. ROS Other: All systems not noted in ROS Statement are negative. Past Medical History Past Medical History: Asthma, CVA/TIA, Diabetes Mellitus, GERD/Reflux, Hyperlipidemia, Hypertension, Osteoarthritis (OA) Additional Past Medical History / Comment(s): NIDDM type II-pt not requiring medication, asthma as a young person, arthritis bilateral hands on occasion, diverticular disease, benign colon polyps. History of Any Multi-Drug Resistant Organisms: None Reported Past Surgical History: Appendectomy, Cholecystectomy, Hysterectomy, Orthopedic Surgery, Tonsillectomy Additional Past Surgical History / Comment(s): L knee arthroscopy Past Anesthesia/Blood Transfusion Reactions: Postoperative Nausea & Vomiting (PONV) Past Psychological History: No Psychological Hx Reported Smoking Status: Never smoker Past Alcohol Use History: None Reported Past Drug Use History: None Reported - Past Family History Father Family Medical History: Neurologic Disorder Additional Family Medical History / Comment(s): Father had parkinson's. He lived to be 83 years old. Mother Family Medical History: No Reported History Additional Family Medical History / Comment(s): Mother was healthy and lived to be 86yrs old. General Exam Limitations: no limitations Course Vital Signs 06/23/22 06/23/22 06/23/22 11:39 11:57 11:59 Temperature 98 F 97.9 F 98.7 F Pulse Rate 55 L 58 L 58 L Respiratory 18 16 16 Rate Blood Pressure 172/69 176/73 169/109 O2 Sat by Pulse 98 98 Oximetry Medical Decision Making - Medical Decision Making Was pt. sent in by a medical professional or institution? @ no Did you speak to anyone other than the patient for history? @Family member at the bedside Did you review nursing and triage notes? @Yes, agree Were old charts reviewed? @Yes see above Differential Diagnosis? @Stroke, TIA, intracranial mass EKG interpreted by me (3pts min.)? @Yes, see above X-rays interpreted by me (1pt min.)? @ [none] CT interpreted by me (1pt min.)? @Yes, see above U/S interpreted by me (1pt. min.)? @ [none] What testing was considered but not performed? (CT, X-rays, U/S, labs)? Why? @CT with angiography was considered however patient does not have any active symptoms at the bedside. What meds were considered but not given? Why? @Aspirin was considered however patient's clinical presentation likely peripheral neuropathy Did you discuss the management of the patient with other professionals? @ no Did you reconcile home meds? @ [none] Was smoking cessation discussed for >3mins.? @ [none] Was critical care preformed (if so, how long)? @ [none] Were there social determinants of health that impacted care today? How? (Homelessness, low income, unemployed, alcoholism, drug addiction, transportation, low edu. Level, literacy, decrease access to med. care, correction, rehab)? @ no Was there de-escalation of care discussed even if they declined? (Discuss DNR or withdrawal of care, Hospice)? @ na What co-morbidities impacted this encounter? (DM, HTN, Smoking, COPD, CAD, Cancer, CVA, Hep., AIDS, mental health diagnosis, sleep apnea, morbid obesity)? @ no Was patient admitted / discharged? @Discharged Undiagnosed new problem with uncertain prognosis? @Peripheral neuropathy Drug Therapy requiring intensive monitoring for toxicity (Heparin, Nitro, Insulin, Cardizem)? @ [none] Were any procedures done? @ [none] Diagnosis/symptom? @Peripheral neuropathy Acute, or Chronic, or Acute on Chronic? @ [default] Uncomplicated (without systemic symptoms) or Complicated (systemic symptoms)? @Uncomplicated Side effects of treatment? @ [none] Exacerbation, Progression, or Severe Exacerbation] @ [no] Poses a threat to life or bodily function? @ [no] - Lab Data Result diagrams: 06/23/22 12:17 06/23/22 12:17 Lab Results 06/23/22 06/23/22 06/23/22 Range/Units 12:17 12:17 12:17 WBC 9.0 (3.8-10.6) k/uL RBC 4.29 (3.80-5.40) m/uL Hgb 13.9 (11.4-16.0) gm/dL Hct 41.0 (34.0-46.0) % MCV 95.7 (80.0-100.0) fL MCH 32.5 (25.0-35.0) pg MCHC 33.9 (31.0-37.0) g/dL RDW 12.3 (11.5-15.5) % Plt Count 176 (150-450) k/uL MPV 8.4 Neutrophils % 42 % Lymphocytes % 49 % Monocytes % 5 % Eosinophils % 1 % Basophils % 1 % Neutrophils # 3.8 (1.3-7.7) k/uL Lymphocytes # 4.4 (1.0-4.8) k/uL Monocytes # 0.5 (0-1.0) k/uL Eosinophils # 0.1 (0-0.7) k/uL Basophils # 0.1 (0-0.2) k/uL PT 10.1 (9.0-12.0) sec INR 0.9 (<1.2) APTT 23.0 (22.0-30.0) sec Sodium 140 (137-145) mmol/L Potassium 4.2 (3.5-5.1) mmol/L Chloride 106 (98-107) mmol/L Carbon Dioxide 30 (22-30) mmol/L Anion Gap 4 mmol/L BUN 18 H (7-17) mg/dL Creatinine 0.82 (0.52-1.04) mg/dL Est GFR (CKD-EPI)AfAm 76 (>60 ml/min/1.73 sqM) Est GFR (CKD-EPI)NonAf 66 (>60 ml/min/1.73 sqM) Glucose 171 H (74-99) mg/dL Calcium 8.9 (8.4-10.2) mg/dL Magnesium 2.2 (1.6-2.3) mg/dL Disposition Clinical Impression: Neuropathy Disposition: HOME SELF-CARE Condition: Fair Instructions (If sedation given, give patient instructions): Peripheral Neuropathy (ED) Is patient prescribed a controlled substance at d/c from ED?: No Referrals: Naa Ray MD [Primary Care Provider] - 1-2 days Time of Disposition: 13:29
[2022-06-23 12:30] LABS: Basophils # (A) 0.1 k/uL (0-0.2); Basophils % (A) 1 %; Eosinophils # (A) 0.1 k/uL (0-0.7); Eosinophils % (A) 1 %; HGB 13.9 gm/dL (11.4-16.0); Lymphocytes # (A) 4.4 k/uL (1.0-4.8); Lymphocytes % (A) 49 %; MCH 32.5 pg (25.0-35.0); MCHC 33.9 g/dL (31.0-37.0); MCV 95.7 fL (80.0-100.0); Mean Platelet Volume 8.4; Monocytes # (A) 0.5 k/uL (0-1.0); Monocytes % (A) 5 %; Neutrophils # (A) 3.8 k/uL (1.3-7.7); Neutrophils % (A) 42 %; Platelet Count 176 k/uL (150-450); RBC 4.29 m/uL (3.80-5.40); RDW 12.3 % (11.5-15.5)
[2022-06-23 12:37] LABS: Calcium 8.9 mg/dL (8.4-10.2); Magnesium 2.2 mg/dL (1.6-2.3); Potassium 4.2 mmol/L (3.5-5.1)
--- NOTE | 2022-06-23 12:43 | CT ---
EXAMINATION TYPE: CT brain wo con DATE OF EXAM: 06/23/2022 COMPARISON: 05/19/2021 HISTORY: Left sided weakness and dizziness. CT DLP: 1158.4 mGycm Automated exposure control for dose reduction was used. FINDINGS: There is mild to moderate generalized degenerative change. Low-attenuation in the white matter is non specific but most typical of remote white matters. No midline shift or mass effect. Orbits are symmetric. Craniocervical junction maintained. Changes of chronic sinusitis. Calvarium int act. 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 NO AC ANGELITA HEMORRHAGE OR MASS EFFECT.
[2022-06-23 13:03] LABS: INR 0.9 (<1.2); Prothrombin Time 10.1 sec (9.0-12.0)
[2022-06-23 13:52] VITALS: BP 143/63; PULSE 68; RESP 16
== END 2022-06-23 14:00 | disposition home or self-care (01) ==
LOC: EC 11:28
DX: E11.40 Type 2 diabetes mellitus with diabetic neuropathy, unspecified (principal); I10 Essential (primary) hypertension; J45.909 Unspecified asthma, uncomplicated; K21.9 Gastro-esophageal reflux disease without esophagitis; Z79.899 Other long term (current) drug therapy
CPT/HCPCS: 36415; 70450; 80048; 83735; 85025; 85610; 85730; 93005; 99284

== ENCOUNTER 2022-07-01 02:07 | Observation (INO) | payer MEDICARE ==
[2022-07-01] MEDS ORDERED: SODIUM CHLORIDE 0.9% 1,000 ML IV STA (02:20)
--- NOTE | 2022-07-01 02:22 | ED ---
Chest Pain HPI - General Chief Complaint: Chest Pain Stated Complaint: Chest Pain,Headache Time Seen by Provider: 07/01/22 02:15 Source: patient, RN notes reviewed, old records reviewed Mode of arrival: wheelchair Limitations: no limitations - History of Present Illness Initial Comments: This is an 86-year-old female to the emergency department presented for evaluation of chest pain. Patient has history of high blood pressure cholesterol diabetes. [place] this rash of heat and warmth over chest on her body arms and tingling. Patient felt numbness and tingling up and down her arms. She has have history of TIA. MD Complaint: chest pain -: hour(s) Onset: during rest, awoke with symptoms Pain Location: epigastric Pain Radiation: none Severity: moderate Severity scale (1-10): 4 Quality: aching, heaviness, sharp Consistency: intermittent Improves With: nothing Worsens With: nothing Context: recent illness Anginal Symptoms: sense of impending doom Other Symptoms: palpitations Treatments Prior to Arrival: none - Related Data Home Medications Medication Instructions Recorded Confirmed Biotin 5 mg PO DAILY@1200 05/19/21 06/23/22 Deepak/D3/Mag11/Zinc/Tumbling Machine Operator/Raymond/Bor 1 tab PO DAILY 05/19/21 06/23/22 [Caltrate 600+D Plus Tablet] Fish Oil/Dha/Epa [Fish Oil 1,200 1 cap PO DAILY@1200 05/19/21 06/23/22 mg Fish Oil] Glucosamine/Chondr Snyder A Sod [Osteo 1 tab PO DAILY 05/19/21 06/23/22 Bi-Flex Caplet] Metoprolol Succinate (ER) [Toprol 100 mg PO DAILY 05/19/21 06/23/22 XL] Multivit-Min/FA/Lycopen/Lutein 1 tab PO DAILY 05/19/21 06/23/22 [Centrum Silver Tablet] Vitamin B Complex 1 cap PO DAILY@1200 05/19/21 06/23/22 Zinc 50 mg PO DAILY 05/19/21 06/23/22 Esomeprazole Magnesium [NexIUM 20 mg PO DAILY PRN 06/23/22 06/23/22 24Hr] Ubidecarenone [Co Q-10] 300 mg PO HS 06/23/22 06/23/22 Previous Rx's Medication Instructions Recorded Atorvastatin [Lipitor] 40 mg PO HS #30 tab 05/19/21 Allergies Allergy/AdvReac Type Severity Reaction Status Date / Time No Known Allergies Allergy Verified 07/01/22 02:08 Review of Systems ROS Statement: Those systems with pertinent positive or pertinent negative responses have been documented in the HPI. ROS Other: All systems not noted in ROS Statement are negative. EKG Findings - EKG Comments: EKG Findings:: EKG is sinus 61 MO 146 QRS 81 QTc 453 Past Medical History Past Medical History: Asthma, CVA/TIA, Diabetes Mellitus, GERD/Reflux, Hyperlipidemia, Hypertension, Osteoarthritis (OA) Additional Past Medical History / Comment(s): NIDDM type II-pt not requiring medication, asthma as a young person, arthritis bilateral hands on occasion, diverticular disease, benign colon polyps. History of Any Multi-Drug Resistant Organisms: None Reported Past Surgical History: Appendectomy, Cholecystectomy, Hysterectomy, Orthopedic Surgery, Tonsillectomy Additional Past Surgical History / Comment(s): L knee arthroscopy Past Anesthesia/Blood Transfusion Reactions: Postoperative Nausea & Vomiting (P ONV) Past Psychological History: No Psychological Hx Reported Smoking Status: Never smoker Past Alcohol Use History: None Reported Past Drug Use History: None Reported - Past Family History Father Family Medical History: Neurologic Disorder Additional Family Medical History / Comment(s): Father had parkinson's. He lived to be 83 years old. Mother Family Medical History: No Reported History Additional Family Medical History / Comment(s): Mother was healthy and lived to be 86yrs old. General Exam Limitations: no limitations General appearance: alert, in no apparent distress Head exam: Present: atraumatic, normocephalic, normal inspection Eye exam: Present: normal appearance, PERRL, EOMI. Absent: scleral icterus, conjunctival injection, periorbital swelling ENT exam: Present: normal exam, mucous membranes moist Neck exam: Present: normal inspection. Absent: tenderness, meningismus, lymphadenopathy Respiratory exam: Present: normal lung sounds bilaterally. Absent: respiratory distress, wheezes, rales, rhonchi, stridor Cardiovascular Exam: Present: regular rate, normal rhythm, normal heart sounds. Absent: systolic murmur, diastolic murmur, rubs, gallop, clicks GI/Abdominal exam: Present: soft, normal bowel sounds. Absent: distended, tenderness, guarding, rebound, rigid Extremities exam: Present: normal inspection, full ROM, normal capillary refill. Absent: tenderness, pedal edema, joint swelling, calf tenderness Back exam: Present: normal inspection Neurological exam: Present: alert, oriented X3, CN II-XII intact Psychiatric exam: Present: normal affect, normal mood Skin exam: Present: warm, dry, intact, normal color. Absent: rash Course Vital Signs 07/01/22 07/01/22 02:09 02:21 Temperature 97.2 F L 97.9 F Pulse Rate 59 L 59 L Respiratory 16 18 Rate Blood Pressure 162/85 152/82 O2 Sat by Pulse 98 62 L Oximetry - Reevaluation(s) Reevaluation #1: 07/01/22 03:20 Records reviewed Reevaluation #2: 07/01/22 03:20 Patient symptoms improved here in the ER Reevaluation #3: 07/01/22 03:20 Patient informed results and questions answered Reevaluation #4: 07/01/22 02:24 Differential Chest Pain: Stable Angina, Unstable Angina, STEMI, NSTEMI Aortic Dissection, Pneumothorax, Musculoskeletal, Esophageal Spasm GERD, Cholecystitis, Pancreatitis, Zoster, this is not meant to be an all-inclusive list. Reevaluation #5: 07/01/22 02:24 Was pt. sent in by a medical professional or institution? @ -no Did you speak to anyone other than the patient for history? @ -no Did you review nursing and triage notes? @ -agree Were old charts reviewed? @ -yes and prior hospitilaztion Differential Diagnosis? @ -no EKG interpreted by me (3pts min.)? @ -[none] X-rays interpreted by me (1pt min.)? @ -[none] CT interpreted by me (1pt min.)? @ -[none] U/S interpreted by me (1pt. min.)? @ -[none] What testing was considered but not performed? (CT, X-rays, U/S, labs)? Why? @ no What meds were considered but not given? Why? @ -[none] Did you discuss the mient of the patient with other professionals? @ -no Did you reconcile home meds? @ -[none] Was smoking cessation discussed for >3mins.? @ -[none] Was critical care preformed (if so, how long)? @ -[none] Were there social determinants of health that impacted care today? How? (Homelessness, low income, unemployed, alcoholism, drug addiction, transportation, low edu. Level, literacy, decrease access to med. care, fpc, rehab)? @ -no Was there de-escalation of care discussed even if they declined? (Discuss DNR or withdrawal of care, Hospice)? @ -no What co-morbidities impacted this encounter? (DM, HTN, Smoking, COPD, CAD, Cancer, CVA, Hep., AIDS, mental health diagnosis, sleep apnea, morbid obesity)? @ -no Was patient admitted / discharged? @ -admit Undiagnosed new problem with uncertain prognosis? @ -[none] Drug Therapy requiring intensive monitoring for toxicity (Heparin, Nitro, Insulin, Cardizem)? @ -[none] Were any procedures done? @ -[none] Diagnosis/symptom? @ -[default] Acute, or Chronic, or Acute on Chronic? @ -[default] Uncomplicated (without systemic symptoms) or Complicated (systemic symptoms)? @ -[default] Side effects of treatment? @ -[none] Exacerbation, Progression, or Severe Exacerbation] @ -[no] Poses a threat to life or bodily function? @ -[no] 07/01/22 04:00 Chest Pain MDM - MDM 86 female to the emergency department for evaluation patient Dese for evaluation of burning chest pain and heaviness and numbness and tingling of arms prior to arrival. Patient admitted as a cardiac observation with a mild pancreatitis Disposition Clinical Impression: Chest pain, Atypical chest pain, Pancreatitis Disposition: ADMITTED IP TO THIS [facility] Condition: Undetermined Is patient prescribed a controlled substance at d/c from ED?: No Referrals: Naa Ray MD [Primary Care Provider] - 1-2 days Time of Disposition: 04:00
[2022-07-01 02:34] LABS: Basophils # (A) 0.1 k/uL (0-0.2); Basophils % (A) 1 %; Eosinophils # (A) 0.2 k/uL (0-0.7); Eosinophils % (A) 1 %; HCT 41.5 % (34.0-46.0); HGB 14.2 gm/dL (11.4-16.0); Lymphocytes # (A) 7.4 k/uL (1.0-4.8); Lymphocytes % (A) 60 %; MCH 32.5 pg (25.0-35.0); MCHC 34.2 g/dL (31.0-37.0); MCV 95.2 fL (80.0-100.0); Monocytes # (A) 0.5 k/uL (0-1.0); Monocytes % (A) 4 %; Neutrophils # (A) 3.8 k/uL (1.3-7.7); Neutrophils % (A) 31 %; Platelet Count 173 k/uL (150-450); RBC 4.35 m/uL (3.80-5.40); RDW 12.9 % (11.5-15.5); WBC 12.3 k/uL (3.8-10.6)
[2022-07-01 02:48] LABS: Albumin 3.8 g/dL (3.5-5.0); Calcium 8.8 mg/dL (8.4-10.2); Magnesium 2.1 mg/dL (1.6-2.3); Potassium 4.3 mmol/L (3.5-5.1); Total Bilirubin 0.5 mg/dL (0.2-1.3); Total Protein 6.4 g/dL (6.3-8.2)
[2022-07-01 02:59] LABS: INR 0.9 (<1.2); Partial Thromboplastin Time 23.1 sec (22.0-30.0); Prothrombin Time 9.8 sec (9.0-12.0)
[2022-07-01] MEDS ORDERED: ONDANSETRON 4 MG/2 ML VIAL IVP PRN (03:58)
[2022-07-01] MEDS ORDERED: MORPHINE SULFATE 4 MG/ML SYRINGE IV PRN (03:58)
[2022-07-01] MEDS ORDERED: NALOXONE 0.4 MG/ML 1 ML VIAL IV PRN (03:58)
--- NOTE | 2022-07-01 04:00 | XR ---
EXAMINATION TYPE: XR chest 1V portable DATE OF EXAM: 07/01/2022 COMPARISON: 05/09/2021 HISTORY: Chest pain TECHNIQUE: FINDINGS: There is no heart failure nor confluent pneumonic infiltrate. Costophrenic angles are clear . There are chest leads. There are no hilar masses. The bony thorax is intact. IMPRESSION: No active cardiopulmonary disease. No change.
[2022-07-01] MEDS: SODIUM CHLORIDE 0.9% 1,000 ML IV SCH ×2 (04:01→10:37)
[2022-07-01 06:58] VITALS: RESP 16
--- NOTE | 2022-07-01 07:41 | US ---
EXAMINATION TYPE: US gallbladder DATE OF EXAM: 07/01/2022 COMPARISON: NONE CLINICAL HISTORY: 86-year-old female pancreatitis. Not feeling well for 2 weeks, cholecystectomy TECHNIQUE: Multiple sonographic images of the right upper quadrant are obtained. FINDINGS: EXAM MEASUREMENTS: Liver Length: 17.7 cm Gallbladder: Surgically absent CBD: 0.7 cm Right Kidney: 9.0 x 3.5 x 4.0 cm Pancreas: Only portions of the pancreatic body are seen. Remainder is obscured by bowel gas shadowing . Liver: intercostal imaging only due to bowel gas. Visualized portions show no gross abnormality. Gallbladder: Surgically absent Evidence for sonographic Amaya's sign: no CBD: Mildly dilated, acceptable given patient's age and postcholecystectomy status. Right Kidney: wnl IMPRESSION: 1. Limited due to intercostal imaging, bowel gas, and body habitus. 2. Bile duct mildly dilated at 7 mm but acceptable given patient's age and postcholecystectomy status .
[2022-07-01 07:42] LABS: Glucose,Whole Blood 136 mg/dL (70-110)
--- NOTE | 2022-07-01 07:42 | CT ---
EXAMINATION TYPE: CT brain wo con DATE OF EXAM: 07/01/2022 HISTORY: headaches CT DLP: 995.5 mGycm. Automated Exposure Control for Dose Reduction was Utilized. TECHNIQUE: CT scan of the head is performed without contrast. COMPARISON: CT brain June 23, 2012. FINDINGS: There is no acute intracranial hemorrhage or midline shift identified. There is mild-to-m oderate diffuse ventricular and sulcal prominence consistent with diffuse age-related cerebral atroph y. There is mild to moderate low-attenuation in the deep and periventricular white matter consistent with chronic small vessel ischemic change. Scleral calcification bilateral globes is redemonstrated. There are small mucous retention cyst and/or polyps in the posterior left maxillary sinus and plant operations worker ior left ethmoid sinuses redemonstrated. IMPRESSION: No acute intracranial hemorrhage or midline shift. There is mild to moderate diffuse ce rebral atrophy and chronic small vessel ischemic change redemonstrated. No significant change from r ecent CT 8 days earlier.
[2022-07-01] MEDS ORDERED: PANTOPRAZOLE 40 MG/10 ML VIAL IV SCH (09:00)
--- NOTE | 2022-07-01 09:04 | P.CRDCN ---
History of Present Illness Consult date: 07/01/22 Consult reason: chest pain History of present illness: History of present illness: This is an 86-year-old female patient with past medical history of hypertension, hyperlipidemia, diabetes. Patient does not have a cardiac history and has had no previous stress testing done. She states she is normally pretty active. Patient woke up with midsternal chest discomfort and had a hot sensation in the chest that felt like a starburst and her skin was tingling. She denies any sensation or pain discomfort at this time. She is noted to have some right upper quadrant epigastric tenderness., EKG is a sinus rhythm with occasional PVCs Chest x-ray no acute abnormalities Troponin negative 2, WBC 12.3, hemoglobin 14.2. Potassium 4.3, BUN 18 and creatinine 0.76. Blood sugar 131. AST 47, ALT 46. Lipase 644. Magnesium 2.1 CAT scan of the brain revealed no acute intracranial hemorrhage or midline shift. Mild to moderate diffuse cerebral atrophy and chronic small vessel ischemic change. Ultrasound gallbladder was limited. Bile duct mildly dilated at 7 mm but acceptable given patient's age and post cholecystectomy status Home cardiac medications Lipitor 40 mg at bedtime, Toprol-XL 100 mg daily Review Of Systems: At the time of my evaluation: Constitutional: No fever, no chills. No weakness, fatigue or lethargy. EENT: No headache. No dizziness. Lungs: No shortness of breath, cough, no sputum production. No wheezing. Cardiovascular: No chest pain, no lower extremity edema. No palpitations. No paroxysmal nocturnal dyspnea. No orthopnea. No lightheadedness or dizziness. No syncopal episodes. Abdominal: No abdominal pain. No nausea, vomiting. No diarrhea. No constipation. No bloody or tarry stools. Genitourinary: No dysuria.. No urinary retention. Musculoskeletal: No myalgias. No muscle weakness, no frequent falls. No back pain. No neck pain. Integumentary: No wounds. No rash. No unusual bruising. Neurologic: No aphasia. No facial droop. No change in mentation. No head injury. No headache. Psychiatric: No depression. No anxiety. Endocrine: No abnormal blood sugars. Physical examination: Gen: This is a an 86-year-old female. She is resting in bed and appears to be comfortable and in no acute distress VS: reviewed HEENT: Head is atraumatic, normocephalic. Pupils equal, round. Sclerae is anicteric. NECK: Supple. No JVD. No lymphadenopathy. No thyromegaly. LUNGS: Clear to auscultation. No wheezes or rhonchi. No intercostal retractions. HEART: Regular rate and rhythm. No murmur. ABDOMEN: Soft. Bowel sounds are present. No masses. Epigastric and right upper quadrant tenderness. EXTREMITIES: No pedal edema. No calf tenderness. NEUROLOGICAL: Patient is awake, alert and oriented x3. Cranial nerves 2 through 12 are grossly intact. Assessment: Chest pain atypical Right upper quadrant and epigastric tenderness Hypertension Hyperlipidemia Diabetes noticed type II Plan: Continue home cardiac medications Obtain 2-D echocardiogram and Doppler study to assess cardiac structure and function Patient is cleared for discharge home with follow-up in the office in 2 weeks. Thank you kindly for this consultation. Nurse practitioner note has been reviewed, I agree with documented findings and plan of care. Patient was seen and examined. Past Medical History Past Medical History: Asthma, CVA/TIA, Diabetes Mellitus, GERD/Reflux, Hyperlipidemia, Hypertension, Osteoarthritis (OA) Additional Past Medical History / Comment(s): NIDDM type II-pt not requiring medication, asthma as a young person, arthritis bilateral hands on occasion, diverticular disease, benign colon polyps. History of Any Multi-Drug Resistant Organisms: None Reported Past Surgical History: Appendectomy, Cholecystectomy, Hysterectomy, Orthopedic Surgery, Tonsillectomy Additional Past Surgical History / Comment(s): L knee arthroscopy Past Anesthesia/Blood Transfusion Reactions: Postoperative Nausea & Vomiting (PONV) Past Psychological History: No Psychological Hx Reported Additional Psychological History / Comment(s): Pt has 2 son's that reside with her. She is independent. Smoking Status: Never smoker Past Alcohol Use History: None Reported Past Drug Use History: None Reported - Past Family History Father Family Medical History: Neurologic Disorder Additional Family Medical History / Comment(s): Father had parkinson's. He lived to be 83 years old. Mother Family Medical History: No Reported History Additional Family Medical History / Comment(s): Mother was healthy and lived to be 86yrs old. Medications and Allergies Home Medications Medication Instructions Recorded Confirmed Type Atorvastatin [Lipitor] 40 mg PO HS #30 tab 05/19/21 07/01/22 Rx Biotin 5 mg PO DAILY@1200 05/19/21 07/01/22 History Deepak/D3/Mag11/Zinc/Aircraft Maintenance Supervisor/Raymond/Bor 1 tab PO DAILY 05/19/21 07/01/22 History [Caltrate 600+D Plus Tablet] Fish Oil/Dha/Epa [Fish Oil 1,200 1 cap PO DAILY@1200 05/19/21 07/01/22 History mg Fish Oil] Glucosamine/Chondr Snyder A Sod [Osteo 1 tab PO DAILY 05/19/21 07/01/22 History Bi-Flex Caplet] Metoprolol Succinate (ER) [Toprol 100 mg PO DAILY 05/19/21 07/01/22 History XL] Multivit-Min/FA/Lycopen/Lutein 1 tab PO DAILY 05/19/21 07/01/22 History [Centrum Silver Tablet] Vitamin B Complex 1 cap PO DAILY@1200 05/19/21 07/01/22 History Zinc 50 mg PO DAILY 05/19/21 07/01/22 History Esomeprazole Magnesium [NexIUM 20 mg PO DAILY PRN 06/23/22 07/01/22 History 24Hr] Ubidecarenone [Co Q-10] 300 mg PO HS 06/23/22 07/01/22 History Sertraline [Zoloft] 50 mg PO DAILY 07/01/22 07/01/22 History Allergies Allergy/AdvReac Type Severity Reaction Status Date / Time No Known Allergies Allergy Verified 07/01/22 06:10 Physical Exam Vitals: Vital Signs Temp Pulse Resp BP Pulse Ox 07/01/22 06:54 16 07/01/22 05:35 54 L 18 134/63 98 07/01/22 02:21 97.9 F 59 L 18 152/82 62 L 07/01/22 02:09 97.2 F L 59 L 16 162/85 98 Intake and Output 06/30/22 07/01/22 07/01/22 22:59 06:59 14:59 Other: Voiding Method Toilet Weight 81.647 kg Results 07/01/22 02:23 07/01/22 02:23 Cardiac Enzymes 07/01/22 07/01/22 07/01/22 Range/Units 02:23 02:23 05:45 AST 47 H (14-36) U/L Troponin I <0.012 <0.012 (0.000-0.034) ng/mL Coagulation 07/01/22 Range/Units 02:23 PT 9.8 (9.0-12.0) sec APTT 23.1 (22.0-30.0) sec CBC 07/01/22 Range/Units 02:23 WBC 12.3 H (3.8-10.6) k/uL RBC 4.35 (3.80-5.40) m/uL Hgb 14.2 (11.4-16.0) gm/dL Hct 41.5 (34.0-46.0) % Plt Count 173 (150-450) k/uL Comprehensive Metabolic Panel 07/01/22 Range/Units 02:23 Sodium 139 (137-145) mmol/L Potassium 4.3 (3.5-5.1) mmol/L Chloride 108 H (98-107) mmol/L Carbon Dioxide 26 (22-30) mmol/L BUN 18 H (7-17) mg/dL Creatinine 0.76 (0.52-1.04) mg/dL Glucose 131 H (74-99) mg/dL Calcium 8.8 (8.4-10.2) mg/dL AST 47 H (14-36) U/L ALT 46 H (4-34) U/L Alkaline Phosphatase 64 (38-126) U/L Total Protein 6.4 (6.3-8.2) g/dL Albumin 3.8 (3.5-5.0) g/dL Current Medications Generic Name Dose Route Start Last Admin Trade Name Freq PRN Reason Stop Dose Admin Sodium Chloride 1,000 mls @ 100 mls/hr 07/01/22 02:20 07/01/22 02:45 Saline 0.9% IV 07/01/22 12:19 100 mls/hr .Q10H STA Administration Sodium Chloride 1,000 mls @ 130 mls/hr 07/01/22 04:00 07/01/22 04:01 Saline 0.9% IV 130 mls/hr .[id number] SYD Administration Morphine Sulfate 4 mg 07/01/22 03:58 Morphine Sulfate 4 Mg/Ml Syringe IV Q4HR PRN Severe Pain (Scale 7 to 10) Naloxone HCl 0.2 mg 07/01/22 03:58 Naloxone 0.4 Mg/Ml 1 Ml Vial IV Q2M PRN Opioid Reversal Ondansetron HCl 4 mg 07/01/22 03:58 Ondansetron 4 Mg/2 Ml Vial IVP Q8HR PRN Nausea And Vomiting Pantoprazole Sodium 40 mg 07/01/22 09:00 Pantoprazole 40 Mg/10 Ml Vial IV DAILY SYD Intake and Output 06/30/22 07/01/22 07/01/22 22:59 06:59 14:59 Other: Voiding Method Toilet Weight 81.647 kg 07/01/22 02:23 07/01/22 02:23
[2022-07-01] MEDS ORDERED: NON FORMULARY DRUG (Esomeprazole Magnesium [Nexium 24hr] 20 MG Tablet) PO PRN (09:41)
[2022-07-01] MEDS ORDERED: SERTRALINE 50 MG TAB PO SCH (09:45)
[2022-07-01] MEDS ORDERED: METOPROLOL SUCCINATE (ER) 100 MG TAB.ER.24H PO SCH (09:45)
[2022-07-01] MEDS ORDERED: NON FORMULARY DRUG (Fish Oil/Dha/Epa [Fish Oil 1,200 Mg Fish Oil] 1 EACH Capsule) PO SCH (12:00)
[2022-07-01] MEDS ORDERED: FOLIC ACID-VIT B COMPLEX-VIT C 1 CAP PO SCH (12:00)
[2022-07-01] MEDS ORDERED: NON FORMULARY DRUG (Biotin [Biotin] 5 MG Capsule) PO SCH (12:00)
[2022-07-01 12:55] LABS: Glucose,Whole Blood 148 mg/dL (70-110)
[2022-07-01 13:28] VITALS: BP 156/69; PULSE 62; TEMP 97.9
--- NOTE | 2022-07-01 15:15 | P.HPIM ---
History of Present Illness H&P Date: 07/01/22 This is a pleasant 86-year-old female who presented to the emergency department with a chest pain and headache during sleep which awoke her around 1 AM. Patient reports there was a numbness/tingling sensation that started in her chest and radiated out to her arms and lasted approximately 15 minutes and then resolved. Patient reports she follows with Dr. Naa moise in the outpatient setting with past medical history of asthma as a child, CVA/TIA, diabetes mellitus, GERD, hyperlipidemia, hypertension. EKG showed sinus rhythm, chest x- ray showed no active cardiopulmonary disease and no change from previous, gallbladder ultrasound was done showing the bile duct being mildly dilated although acceptable at gait given age and postcholecystectomy status. CT of the brain was done showing no acute intracranial hemorrhage or midline shift there is mild to moderate diffuse cerebral atrophy and chronic small vessel ischemic changes redemonstrated with no significant change from recent CT done 8 days prior. Labs on admission revealed a WBC of 12.3, hemoglobin 14.2, platelets 173, sodium 139, potassium 4.3, creatinine 0.76, magnesium 2.1, AST slightly elevated at 47, ALT at 46, troponins 3 were negative and lipase was 644. BNP was 111. Patient was admitted for chest pain with cardiology on consult and continued on telemetry monitoring. On exam this morning patient denies abdominal pain or discomfort denies any nausea or vomiting and has been nothing by mouth and started on IV fluids recommending discontinuing the fluids and feeding the patient to monitor for any pain or intolerance. Patient reports starting this morning she has had multiple episodes of diarrhea and will obtain a C. diff sample. 2-D echo was ordered and pending. Review Of Systems: Constitutional: No fever, no chills, no night sweats. No weight change. No weakness, fatigue or lethargy. No daytime sleepiness. EENT: No headache. No blurred vision or double vision, no loss of vision. No loss of Hearing, no ringing in the ears, no dizziness. No nasal drainage or congestion. No epistaxis. No sore throat. Lungs: No shortness of breath, cough, no sputum production. No wheezing. Cardiovascular: Reports chest pain that resolved, no lower extremity edema. No palpitations. No paroxysmal nocturnal dyspnea. No orthopnea. No lightheadedness or dizziness. No syncopal episodes. Reported a dull headache that has resolved Abdominal: No abdominal pain. No nausea, vomiting. Reports diarrhea that started this a.m after admission. No constipation. No bloody or tarry stools.. No loss of appetite. Genitourinary: No dysuria, increased frequency, urgency. No urinary retention. Musculoskeletal: No myalgias. No muscle weakness, no gait dysfunction, no frequent falls. No back pain. No neck pain. Integumentary: No wounds, no lesions. No rash or pruritus. No unusual bruising. No change in hair or nails. Neurologic: No aphasia. No facial droop. No change in mentation. No head injury. No headache. No paralysis. No paresthesia. Psychiatric: No depression. No anxiety. No mood swings. Endocrine: No abnormal blood sugars. No weight change. No excessive sweating or thirst. No cold intolerance. PHYSICAL EXAMINATION: GENERAL: The patient is alert and oriented x4, Well developed, well nourished. Obese HEENT: Pupils are round and equally reacting to light. EOMI. no scleral icterus. No conjunctival pallor. Normocephalic, atraumatic. No pharyngeal erythema. No thyromegaly. CARDIOVASCULAR: S1 and S2 muffled PULMONARY: diminished breath sounds bilaterally with no wheezing or rhonchi noted. ABDOMEN: soft. Nontender on exam. obese. non-distended, normoactive bowel tra nds. No palpable organomegaly. MUSCULOSKELETAL: No joint swelling or deformity. EXTREMITIES: No cyanosis, clubbing, or pedal edema. NEUROLOGICAL: Gross neurological examination did not reveal any focal deficits. SKIN: No rashes. Assessment: Chest pain, ruled out ACS Diarrhea, rule out C. diff, most likely gastritis History of CVA/TIA Diabetes mellitus type 2, [id number], controlled with diet GERD Hyperlipidemia hypertension GI prophylaxis DVT prophylaxis Full code Plan: Recommend to continue with current medications and management and cardiology on consult Recommend continue telemetry monitoring and cardiology has evaluated the patient recommending 2-D echo and then clearance with close outpatient follow-up with Dr. Kasper in 2 weeks Patient did have an elevated lipase mildly of 644 although denies any nausea, vomiting, abdominal pain and will resume diet and monitor for tolerance. Patient was continued on normal saline at 1:30 mL per hour we'll discontinue. Patient having multiple episodes of diarrhea will obtain a C. diff sample to rule out most likely related to gastritis Patient have 2-D echo done prior to discharge and will follow-up with cardiology outpatient. Once 2-D echo was performed patient will be discharged later today. Recommend follow-up with primary care provider this week along with cardiology as discussed The impression and plan of care has been dictated by Janie Clark, nurse practitioner as directed. Dr. Jm MD I have performed a history and examination and MDM of this patient, discussed the same with the dictator, and agree with the dictator's assessment and plan as written ,documented as a scribe. Based on total visit time, I have performed more than 50% of the visit. Any additional findings or plans will be noted. Past Medical History Past Medical History: Asthma, CVA/TIA, Diabetes Mellitus, GERD/Reflux, Hyperlipidemia, Hypertension, Osteoarthritis (OA) Additional Past Medical History / Comment(s): NIDDM type II-pt not requiring medication, asthma as a young person, arthritis bilateral hands on occasion, diverticular disease, benign colon polyps. History of Any Multi-Drug Resistant Organisms: None Reported Past Surgical History: Appendectomy, Cholecystectomy, Hysterectomy, Orthopedic Surgery, Tonsillectomy Additional Past Surgical History / Comment(s): L knee arthroscopy Past Anesthesia/Blood Transfusion Reactions: Postoperative Nausea & Vomiting (PONV) Past Psychological History: No Psychological Hx Reported Additional Psychological History / Comment(s): Pt has 2 son's that reside with her. She is independent. Smoking Status: Never smoker Past Alcohol Use History: None Reported Past Drug Use History: None Reported - Past Family History Father Family Medical History: Neurologic Disorder Additional Family Medical History / Comment(s): Father had parkinson's. He lived to be 83 years old. Mother Family Medical History: No Reported History Additional Family Medical History / Comment(s): Mother was healthy and lived to be 86yrs old. Medications and Allergies Home Medications Medication Instructions Recorded Confirmed Type Atorvastatin [Lipitor] 40 mg PO HS #30 tab 05/19/21 07/01/22 Rx Biotin 5 mg PO DAILY@1200 05/19/21 07/01/22 History Deepak/D3/Mag11/Zinc/Incinerator Attendant/Raymond/Bor 1 tab PO DAILY 05/19/21 07/01/22 History [Caltrate 600+D Plus Tablet] Fish Oil/Dha/Epa [Fish Oil 1,200 1 cap PO DAILY@1200 05/19/21 07/01/22 History mg Fish Oil] Glucosamine/Chondr Snyder A Sod [Osteo 1 tab PO DAILY 05/19/21 07/01/22 History Bi-Flex Caplet] Metoprolol Succinate (ER) [Toprol 100 mg PO DAILY 05/19/21 07/01/22 History XL] Multivit-Min/FA/Lycopen/Lutein 1 tab PO DAILY 05/19/21 07/01/22 History [Centrum Silver Tablet] Vitamin B Complex 1 cap PO DAILY@1200 05/19/21 07/01/22 History Zinc 50 mg PO DAILY 05/19/21 07/01/22 History Esomeprazole Magnesium [NexIUM 20 mg PO DAILY PRN 06/23/22 07/01/22 History 24Hr] Ubidecarenone [Co Q-10] 300 mg PO HS 06/23/22 07/01/22 History Sertraline [Zoloft] 50 mg PO DAILY 07/01/22 07/01/22 History Allergies Allergy/AdvReac Type Severity Reaction Status Date / Time No Known Allergies Allergy Verified 07/01/22 06:10 Physical Exam Vitals: Vital Signs Temp Pulse Pulse Resp BP BP Pulse Ox 07/01/22 07:00 97.8 F 53 L 16 165/72 97 07/01/22 06:54 16 07/01/22 05:35 54 L 18 134/63 98 07/01/22 02:21 97.9 F 59 L 18 152/82 62 L 07/01/22 02:09 97.2 F L 59 L 16 162/85 98 Intake and Output 06/30/22 07/01/22 07/01/22 22:59 06:59 14:59 Other: Voiding Method Toilet Weight 81.647 kg Results CBC & Chem 7: 07/01/22 02:23 07/01/22 02:23 Labs: Abnormal Lab Results - Last 24 Hours (Table) 07/01/22 07/01/22 07/01/22 Range/Units 02: 02:23 07:40 WBC 12.3 H (3.8-10.6) k/uL Lymphocytes # 7.4 H (1.0-4.8) k/uL Chloride 108 H (98-107) mmol/L BUN 18 H (7-17) mg/dL Glucose 131 H (74-99) mg/dL POC Glucose (mg/dL) 136 H (70-110) mg/dL AST 47 H (14-36) U/L ALT 46 H (4-34) U/L Lipase 644 H (23-300) U/L Assessment and Plan Time with Patient: Greater than 30
[2022-07-01] MEDS ORDERED: ATORVASTATIN 40 MG TAB PO SCH (21:00)
[2022-07-01] MEDS ORDERED: NON FORMULARY DRUG (Ubidecarenone [Co Q-10] 300 MG Capsule) PO SCH (21:00)
[2022-07-02] MEDS ORDERED: PANTOPRAZOLE 40 MG TABLET PO SCH (07:30)
[2022-07-02] MEDS ORDERED: ZINC SULFATE 220 MG CAP PO SCH (09:00)
[2022-07-02] MEDS ORDERED: NON FORMULARY DRUG (Cal/D3/Mag11/Zinc/Cop/Mang/Bor [Caltrate 600+D Plus Tablet] 1 EACH Tab PO SCH (09:00)
[2022-07-02] MEDS ORDERED: MULTIVITAMINS, THERA 1 EACH TAB PO SCH (09:00)
[2022-07-02] MEDS ORDERED: NON FORMULARY DRUG (Glucosamine/Chondr Su A Sod [Osteo Bi-Flex Caplet] 1 EACH Tablet) PO SCH (09:00)
--- NOTE | 2022-07-02 11:01 | CA ---
Transthoracic Echo Report Name: Nazia Weaver Age: 86 Gender: F : 1935 Exam Date: 07/01/2022 14:50 Exam Location: [facility] Ht (in): 64 Wt (lb): 180 Ordering Physician: Janie Clark Attending/Referring Phys: Biomedical Repair Technician Sulema Coyle RDCS Procedure CPT: Indications: assess LVF Cardiac Hx: Technical Quality: Fair Contrast 1: Total Dose (mL): Contrast 2: Total Dose (mL): MEASUREMENTS (Male / Female) Normal Values 2D ECHO LV Diastolic Diameter PLAX 4.5 cm 4.2 - 5.9 / 3.9 - 5.3 cm LV Systolic Diameter PLAX 3.0 cm IVS Diastolic Thickness 1.2 cm 0.6 - 1.0 / 0.6 - 0.9 cm LVPW Diastolic Thickness 1.3 cm 0.6 - 1.0 / 0.6 - 0.9 cm LV Relative Wall Thickness 0.6 RV Internal Dim ED PLAX 3.5 cm LA Volume 57.2 cm??? 18 - 58 / 22 - 52 cm??? M-MODE Aortic Root Diameter MM 2.9 cm LA Systolic Diameter MM 4.6 cm LA Ao Ratio MM 1.6 AV Cusp Separation MM 1.8 cm DOPPLER AV Peak Velocity 172.7 cm/s AV Peak Gradient 11.9 mmHg LVOT Peak Velocity 81.8 cm/s LVOT Peak Gradient 2.7 mmHg MV Area PHT 3.0 cm??? Mitral E Point Velocity 97.6 cm/s Mitral A Point Velocity 150.4 cm/s Mitral E to A Ratio 0.6 MV Deceleration Time 253.7 ms MV E' Velocity 6.5 cm/s Mitral E to MV E' Ratio 15.1 TR Peak Velocity 319.1 cm/s TR Peak Gradient 40.7 mmHg Right Ventricular Systolic Press 45.7 mmHg FINDINGS Left Ventricle Mildly increased septal wall thickness. Mildly increased posterior wall thickness. Normal left ventricular systolic function with no obvious regional wall motion abnormalities. Left ventricular ejection fraction is estimated at 55-60 %. Right Ventricle Mild right ventricular dilatation. Mild pulmonary hypertension. Right Atrium Normal right atrial size. Left Atrium Mildly increased left atrial volume. Mitral Valve Structurally normal mitral valve. Mild mitral regurgitation. Aortic Valve Trileaflet aortic valve. No aortic valve stenosis or regurgitation. Tricuspid Valve Structurally normal tricuspid valve. Mild tricuspid regurgitation. Pulmonic Valve Trace pulmonic regurgitation. Pericardium No pericardial effusion. Aorta Normal size aortic root and proximal ascending aorta. CONCLUSIONS Normal LV size and systolic function with mild concentric LVH. Mild mitral and tricuspid insufficiency. There is mild mitral valve calcification and aortic sclerosis. There is no clearcut pericardial effusion. There is an echo free space anteriorly which may represent a fat pad Previewed by: Dr. Genny Leger MD (Electronically Signed) Final Date: 02 July 2022 11:00
--- NOTE | 2022-07-03 09:11 | P.DS ---
Providers Date of admission: 07/01/22 03:59 Expected date of discharge: 07/01/22 Attending physician: Lucia King Consults: 07/01/22 03:58 Consult Physician Routine Consulting Provider: Morgan Kasper Consult Reason/Comments: cp Do you want consulting provider notified?: Yes Primary care physician: Naa Ray Hospital Course: Final diagnosis Chest pain, ruled out ACS Diarrhea, ruled out C. diff, most likely gastritis History of CVA/TIA Diabetes mellitus type 2, [id number], controlled with diet GERD Hyperlipidemia hypertension GI prophylaxis DVT prophylaxis Full code Discharge disposition Patient is being discharged in a stable condition with guarded prognosis to home . Patient will follow-up with Dr. Naa Ray in the outpatient setting upon discharge. Patient is to follow up with Dr. Leger in the office for stress testing discussion as scheduled. Total time taken is greater than 35 minutes. Hospital course This is a pleasant 86-year-old female who presented to the emergency department with a chest pain and headache during sleep which awoke her around 1 AM. Patient reports there was a numbness/tingling sensation that started in her c hest and radiated out to her arms and lasted approximately 15 minutes and then resolved. Patient reports she follows with Dr. Naa moise in the outpatient setting with past medical history of asthma as a child, CVA/TIA, diabetes mellitus, GERD, hyperlipidemia, hypertension. EKG showed sinus rhythm, chest x- ray showed no active cardiopulmonary disease and no change from previous, gallbladder ultrasound was done showing the bile duct being mildly dilated although acceptable at gait given age and postcholecystectomy status. CT of the brain was done showing no acute intracranial hemorrhage or midline shift there is mild to moderate diffuse cerebral atrophy and chronic small vessel ischemic changes redemonstrated with no significant change from recent CT done 8 days prior. Labs on admission revealed a WBC of 12.3, hemoglobin 14.2, platelets 173, sodium 139, potassium 4.3, creatinine 0.76, magnesium 2.1, AST slightly elevated at 47, ALT at 46, troponins 3 were negative and lipase was 644. BNP was 111. Patient was admitted for chest pain with cardiology on consult and continued on telemetry monitoring. On exam this morning patient denies abdominal pain or discomfort denies any nausea or vomiting and has been nothing by mouth and started on IV fluids recommending discontinuing the fluids and feeding the patient to monitor for any pain or intolerance. Patient reports starting this morning she has had multiple episodes of diarrhea and will obtain a C. diff sample. 2-D echo was ordered and normal LV size and systolic function with mild concentric LVH, mild mitral tricuspid insufficiency with mild mitral valve calcifications aortic sclerosis. No clear-cut pericardial effusion and there is an echo-free space anteriorly which may represent a fat pad. Cardiology is recommending outpatient follow-up for stress testing. Patient did have episodes of diarrhea and C. diff testing was negative most likely gastritis. Patient encouraged to continue with antidiarrheals as needed and slowly advancing from bland diet as tolerated. Currently no reports of chest pain, shortness of breath, or palpitations. Patient is afebrile. No reports of nausea or vomiting and patient is tolerating diet. Patient will be discharged home today. PHYSICAL EXAMINATION: GENERAL: The patient is alert and oriented x4, Well developed, well nourished. Obese HEENT: Pupils are round and equally reacting to light. EOMI. no scleral icterus. No conjunctival pallor. Normocephalic, atraumatic. No pharyngeal erythema. No thyromegaly. CARDIOVASCULAR: S1 and S2 muffled PULMONARY: diminished breath sounds bilaterally with no wheezing or rhonchi noted. ABDOMEN: soft. Nontender on exam. obese. non-distended, normoactive bowel sounds. No palpable organomegaly. MUSCULOSKELETAL: No joint swelling or deformity. EXTREMITIES: No cyanosis, clubbing, or pedal edema. NEUROLOGICAL: Gross neurological examination did not reveal any focal deficits. SKIN: No rashes. Please refer to [facility] impression and plan of care has been dictated by Janie Clark, Nurse Practitioner as directed. Dr. Jm MD I have performed a history and examination and MDM of this patient, discussed the same with the dictator, and agree with the dictator's assessment and plan as written ,documented as a scribe. Based on total visit time, I have performed more than 50% of the visit. edication reconciliation sheet for a list of medications. Patient Condition at Discharge: Stable Plan - Discharge Summary New Discharge Prescriptions: Continue Fish Oil/Dha/Epa [Fish Oil 1,200 mg Fish Oil] 1 cap PO DAILY@1200 Multivit-Min/FA/Lycopen/Lutein [Centrum Silver Tablet] 1 tab PO DAILY Metoprolol Succinate (ER) [Toprol XL] 100 mg PO DAILY Glucosamine/Chondr Snyder A Sod [Osteo Bi-Flex Caplet] 1 tab PO DAILY Ubidecarenone [Co Q-10] 300 mg PO HS Zinc 50 mg PO DAILY Vitamin B Complex 1 cap PO DAILY@1200 Deepak/D3/Mag11/Zinc/Sales Project Administrator/Raymond/Bor [Caltrate 600+D Plus Tablet] 1 tab PO DAILY Biotin 5 mg PO DAILY@1200 Atorvastatin [Lipitor] 40 mg PO HS #30 tab Esomeprazole Magnesium [NexIUM 24Hr] 20 mg PO DAILY PRN PRN Reason: Gi Upset Sertraline [Zoloft] 50 mg PO DAILY Discharge Medication List Atorvastatin [Lipitor] 40 mg PO HS #30 tab 05/19/21 [Rx] Biotin 5 mg PO DAILY@1200 05/19/21 [History] Deepak/D3/Mag11/Zinc/Sales Project Administrator/Raymond/Bor [Caltrate 600+D Plus Tablet] 1 tab PO DAILY 05/19/21 [History] Fish Oil/Dha/Epa [Fish Oil 1,200 mg Fish Oil] 1 cap PO DAILY@1200 05/19/21 [History] Glucosamine/Chondr Snyder A Sod [Osteo Bi-Flex Caplet] 1 tab PO DAILY 05/19/21 [History] Metoprolol Succinate (ER) [Toprol XL] 100 mg PO DAILY 05/19/21 [History] Multivit-Min/FA/Lycopen/Lutein [Centrum Silver Tablet] 1 tab PO DAILY 05/19/21 [History] Vitamin B Complex 1 cap PO DAILY@1200 05/19/21 [History] Zinc 50 mg PO DAILY 05/19/21 [History] Esomeprazole Magnesium [NexIUM 24Hr] 20 mg PO DAILY PRN 06/23/22 [History] Ubidecarenone [Co Q-10] 300 mg PO HS 06/23/22 [History] Sertraline [Zoloft] 50 mg PO DAILY 07/01/22 [History] Follow up Appointment(s)/Referral(s): Genny Leger MD [STAFF PHYSICIAN] - 2 Weeks ([facility] will call patient with appointment date and time.) Naa Ray MD [Primary Care Provider] - 3 Days Activity/Diet/Wound Care/Special Instructions: Activity Limited until follow-up Continue bland diet and slowly advance as tolerated Follow-up with cardiology as discussed in 1-2 weeks Continue medications as prescribed Discharge Disposition: HOME SELF-CARE
== END 2022-07-01 15:55 | disposition home or self-care (01) ==
LOC: EC 02:07 → 6NMEDSUR 03:59
PROVIDERS: ADMIT Hospitalist; ATTEND Hospitalist
DX: R07.89 Other chest pain (principal); R10.11 Right upper quadrant pain; R10.13 Epigastric pain; I49.3 Ventricular premature depolarization; K21.9 Gastro-esophageal reflux disease without esophagitis; E11.9 Type 2 diabetes mellitus without complications; E78.5 Hyperlipidemia, unspecified; I10 Essential (primary) hypertension; G31.9 Degenerative disease of nervous system, unspecified; Z87.09 Personal history of other diseases of the respiratory system; Z86.73 Personal history of transient ischemic attack (TIA), and cerebral infarction without residual deficits; Z82.0 Family history of epilepsy and other diseases of the nervous system; Z90.49 Acquired absence of other specified parts of digestive tract; K85.90 Acute pancreatitis without necrosis or infection, unspecified; Z90.710 Acquired absence of both cervix and uterus; Z98.890 Other specified postprocedural states; Z79.899 Other long term (current) drug therapy
CPT/HCPCS: 96361 ×2; 96374; 99285; 36415; 93005; 93306; 83880; 80053; 83690; 83735; 84484; 85025; 85610; 85730; 87324; 71045; 76705; 70450; G0378; C9113; 96375